=== PATIENT | female | born 1950 | race Caucasian/White ===

== ENCOUNTER 2017-11-15 13:00 | Emergency (ER) | payer BC, MEDICARE, OTHER ==
[~2017-11-15] VITALS: Ht 157.5 cm; Wt 63.5 kg
[~2017-11-15 13:00] MED LIST: AZITHROMYCIN250 MG PO; PEPCID20 MG PO; PREDNISONE20 MG PO; TAMIFLU75 MG PO; ULTRAM50 MG PO; Z.0.LISINOPRIL20 MG PO; Z.0.PREMARIN0.9 MG PO; Z.0.TENORMIN25 MG PO; Z.0.TYLENOL # 31 EA PO; [UNRECOGNIZED DRUG - CODE] PO
--- OUTSIDE RECORDS SUMMARY | 2017-11-15 13:04 | XMS REPORT ---
Author Author [facility] Address Unknown Phone Unavailable Care Team Providers Care Candy Feeder Name Role Phone RAHAT BOWEN Unavailable Unavailable Problems This patient has no known problems. Allergies, Adverse Reactions, Alerts This patient has no known allergies or adverse reactions. Medications This patient has no known medications. Results Test Description Test Time Test Comments Text Results Atomic Results Result Comments CHEST 2 VIEWS [place] [address] Patient Name: KANWAL PENA MR # : [id number] : 1950 Age/Sex: 66/F Req #: [id number] Adm Physician: Ordered by: RAHAT BOWEN MD Report #: [id number] Location: ER Room/Bed: Procedure: [id number] DX/ CHEST 2 VIEWS Exam Date: 05/10/17 Exam Time: 919 REPORT STATUS: Signed PROCEDURE: X-RAY CHEST, TWO VIEWS COMPARISON: . INDICATIONS: CHEST DISCOMFORT FINDINGS: The lungs are well-inflated. Unchanged 1 cm nodular opacity projecting over the lateral aspect of the right lower lung. No consolidation, pleural effusion, or pneumothorax. Tortuosity and atherosclerotic calcification of the thoracic aorta, unchanged. Otherwise normal mediastinal contour without pulmonary edema. No acute osseous abnormality. Stable mild anterior wedge deformity of a midthoracic vertebral body. CONCLUSION: No acute cardiopulmonary abnormality. 1 cm nodular opacity projecting over the right lower lung likely represents a nipple shadow. In the absence of a left- sided correlate, a repeat examination with nipple markers is recommended. Dictated by: Luis Bynum M.D. on 05/10/2017 at 9:52 Electronically approved by: Luis Bynum M.D. on 05/10/2017 at 9:52 Dictated By : LUIS BYNUM MD 1 Transcribed By: ISH on 05/10/17951 COPY TO: RAHAT BOWEN MD
[2017-11-15] MEDS ORDERED: TETRACAINE HCL 0.5% OPTH SOLN 4 ML BTL OP ONE (14:15)
[2017-11-15] MEDS ORDERED: FLUORESCEIN SOD(OPTH) 1 MG STRP OP ONE ×2 (14:15→15:15)
[2017-11-15 15:29] VITALS: BP 156/70
== END 2017-11-15 15:41 | disposition home or self-care (01) ==
LOC: ER 13:15
DX: H57.11 Ocular pain, right eye (principal); S05.01XA Injury of conjunctiva and corneal abrasion without foreign body, right eye, initial encounter; H11.31 Conjunctival hemorrhage, right eye; Y99.0 Civilian activity done for income or pay
CPT/HCPCS: 99283

== ENCOUNTER 2017-12-19 14:38 | Emergency (ER) | payer MEDICARE, BC ==
[~2017-12-19] VITALS: Ht 157.5 cm; Wt 63.5 kg
--- OUTSIDE RECORDS SUMMARY | 2017-12-19 14:40 | XMS REPORT | Continuity of Care Document ---
Author Author [facility] Organization [facility] Address [address] [place] [address] Phone Unavailable Care Team Providers Care Finance Clerk Name Role Phone DENNIS LEE MD PCP Insurance Providers Guarantor Kanwal Pena Address [address] [place] [address] Email [email or web address] Payer Medicare A & B Policy Number [id number] Subscriber's Name Kanwal Pena Relationship 18 Self / Same As Patient Effective Date 12/01/15 [facility] Policy Number [id number] Subscriber's Name Kanwal Pena Relationship 18 Self / Same As Patient Group Number [id number] Effective Date 12/01/15 Advance Directives Directive Response Recorded Date/Time Does the patient have an advance directive? No 07/20/11 7:57pm If yes, is advance directive on file with [facility]? No 07/20/11 7:58pm If not on file with [facility] will patient provide a copy? No 07/20/11 7:58pm Do you have a Directive to Physician? No 11/15/17 2:44pm Do you have a Medical Power of Welding Production Supervisor? No 11/15/17 2:44pm Do you have an out of hospital Do Not Resuscitate Order? No 11/15/17 2:44pm Do you have any special needs we should be aware of? No 11/15/17 2:44pm Do you have a support person here with you today? Yes 11/15/17 2:44pm Did patient receive Notice of Privacy Practices? Yes 11/15/17 2:44pm Did patient receive patient rights and responsibilities? Yes 11/15/17 2:44pm Problems Medical Problem Onset Date Status Bronchitis Unknown Acute Foreign body of left hand Unknown Acute Laceration of left hand Unknown Acute Medications Current Home Medications Medication Dose Units Route Directions Days Qty Instructions Start Date Azithromycin (Z-Kenneth) 250 Mg Tablet 250 Mg Oral Use As Directed 1 Udpkt Z-Pack Famotidine (Pepcid) 20 Mg Tablet 20 Mg Oral Daily 60 Tab Lisinopril 20 Mg Tablet 20 Mg Oral Twice A Day Tramadol Hcl (Ultram) 50 Mg Tablet 50 Mg Oral Every 8 Hours for Pain Past Home Medications Medication Directions Ordered Status Acetaminophen/Codeine (Tylenol # 3) 1 Ea Tab, 1 Oral Rt Q6h Discontinued Atenolol (Tenormin) 25 Mg Tablet, 0.5 Tab Oral Discontinued Azithromycin (Z-Kenneth) 250 Mg Tablet, 250 Mg Oral Use As Directed Discontinued Estrogens,Conjugated (Premarin) 0.9 Mg Tablet, 1 Oral Rt Daily Discontinued Oseltamivir Phosphate (Tamiflu) 75 Mg Cap, 75 Mg Oral Twice A Day Discontinued Penicillin V Potassium (Pencillin V Potassium) 250 Mg Tab, 1 Oral Rt Q6h Discontinued Prednisone 20 Mg Tab, 20 Mg Oral Daily Discontinued Social History Smoking Status Start Date Stop Date Never Smoker Hospital Discharge Instructions No hospital discharge instruction information available. Plan of Care Discharge Date 11/15/17 3:41pm Disposition HOME, SELF-CARE Condition at Discharge Stable Instructions/Education Provided Corneal Abrasion Eye Pain Forms Provided Work/School Excuse Prescriptions See Medication Section Additional Instructions/Education Follow up with eye doctor- call for appointment today [facility] OfficeAddress [address] [facility] [address] OfficeTelephone Take antibiotics as directed return for any concerns Functional Status No functional status information available. Allergies, Adverse Reactions, Alerts Allergen Type Severity Reaction Status Last Updated promethazine HCl Adverse Reaction Severe TARDIVE DISKINESIA Active meperidine HCl Adverse Reaction Intermediate NAUSEA & VOMITING Active 04/18 Codeine Adverse Reaction Intermediate NAUSEA & VOMITING Active 05/10/17 Immunizations No immunization information available. Vital Signs Acute Vital Signs Vital Response Date/Time Temperature (Fahrenheit) 98.7 degrees F (97.6 - 99.5) 11/15/2017 3:29pm Pulse Pulse Rate (adult) 62 bpm (60 - 90) 11/15/2017 3:29pm Respiratory Rate 18 bpm (12 - 24) 11/15/2017 3:29pm Blood Pressure 156/70 mm Hg 11/15/2017 3:29pm Height 5 ft 2 in 11/15/2017 1:02pm Weight 140 lb 11/15/2017 1:02pm Body Mass Index 25.6 kg/m^2 11/15/2017 1:02pm Results Laboratory Results Test Name Result Units Flags Reference Collection Date/Time Result Date/ Time Comments Prothrombin Time 11.7 seconds L 11.9-14.5 02/02/2017 9:45pm 02/02/2017 11:01pm Prothromb Time International Ratio 0.82 02/02/2017 9:45pm 2016 11:01pm Oral Anticoagulant Therapy INR Values: 1. Low Intensity Therapy 1.5 - 2.0 2. Moderate Intensity Therapy 2.0 - 3.0 3. High Intensity Therapy(1) 2.5 - 3.5 4. High Intensity Therapy(2) 3.0 - 4.0 5. Panic Value INR > 5.0 Activated Partial Thromboplast Time 28.8 seconds 23.8-35.5 02/02/2017 9: 45pm 02/02/2017 11:01pm Magnesium Level 2.4 MG/DL H 1.3-2.1 02/02/2017 9:45pm 02/02/2017 11: 06pm White Blood Count 6.55 x10e3/uL 4.8-10.8 05/10/2017 9:07am 05/10/2017 10:06am Red Blood Count 3.54 x10e6/uL L 3.6-5.1 05/10/2017 9:07am 05/10/2017 10: 06am Hemoglobin 10.8 g/dL L 12.0-16.0 05/10/2017 9:07am 05/10/2017 10:06am Hematocrit 32.7 % L 34.2-44.1 05/10/2017 9:07am 05/10/2017 10:06am Mean Corpuscular Volume 92.4 fL 81-99 05/10/2017 9:07am 05/10/2017 10: 06am Mean Corpuscular Hemoglobin 30.5 pg 28-32 05/10/2017 9:07am 05/10/2017 10:06am Mean Corpuscular Hemoglobin Concent 33.0 g/dL 31-35 05/10/2017 9:07am 05/10/2017 10:06am Red Cell Distribution Width 14.7 % H 11.7-14.4 05/10/2017 9:07am 2016 10:06am Platelet Count 337 x10e3/uL 140-360 05/10/2017 9:07am 05/10/2017 10: 06am Neutrophils (%) (Auto) 59.1 % 38.7-80.0 05/10/2017 9:07am 05/10/2017 10 :06am Lymphocytes (%) (Auto) 21.5 % 18.0-39.1 05/10/2017 9:07am 05/10/2017 10 :06am Monocytes (%) (Auto) 9.0 % 4.4-11.3 05/10/2017 9:07am 05/10/2017 10: 06am Eosinophils (%) (Auto) 9.8 % H 0.0-6.0 05/10/2017 9:07am 05/10/2017 10: 06am Basophils (%) (Auto) 0.3 % 0.0-1.0 05/10/2017 9:07am 05/10/2017 10: 06am IM GRANULOCYTES % 0.3 % 0.0-1.0 05/10/2017 9:07am 05/10/2017 10:06am Neutrophils # (Auto) 3.9 2.1-6.9 05/10/2017 9:07am 05/10/2017 10: 06am Lymphocytes # (Auto) 1.4 1.0-3.2 05/10/2017 9:07am 05/10/2017 10: 06am Monocytes # (Auto) 0.6 0.2-0.8 05/10/2017 9:07am 05/10/2017 10:06am Eosinophils # (Auto) 0.6 H 0.0-0.4 05/10/2017 9:07am 05/10/2017 10: 06am Basophils # (Auto) 0.0 0.0-0.1 05/10/2017 9:0705/10/2017 10:06am Absolute Immature Granulocyte (auto 0.02 x10e3/uL 0-0.1 05/10/2017 9: 07am 05/10/2017 10:06am Urine Color YELLOW YELLOW 05/10/2017 9:1305/10/2017 10:17am Urine Clarity CLEAR CLEAR 05/10/2017 9:1305/10/2017 10:17am Urine Specific [place] 1.010 1.010-1.025 05/10/2017 9:132016 10:17am Urine pH 6.5 5 - 7 05/10/2017 9:1305/10/2017 10:17am Urine Leukocyte Esterase NEGATIVE NEGATIVE 05/10/2017 9:13am 2016 10:17am Urine Nitrite NEGATIVE NEGATIVE 05/10/2017 9:1305/10/2017 10:17am Urine Protein NEGATIVE NEGATIVE 05/10/2017 9:13am 05/10/2017 10:17am Urine Glucose (UA) NEGATIVE NEGATIVE 05/10/2017 9:1305/10/2017 10: 17am Urine Ketones NEGATIVE NEGATIVE 05/10/2017 9:1305/10/2017 10:17am Urine Urobilinogen 0.2 mg/dL 0.2 - 1 05/10/2017 9:1305/10/2017 10: 17am Urine Bilirubin NEGATIVE NEGATIVE 05/10/2017 9:1305/10/2017 10: 17am Urine Blood NEGATIVE NEGATIVE 05/10/2017 9:1305/10/2017 10:17am Urine WBC 0-5 /HPF 0-5 05/10/2017 9:1305/10/2017 10:31am Urine RBC NONE /HPF 0-5 05/10/2017 9:1305/10/2017 10:31am Urine Bacteria NONE /HPF NONE 05/10/2017 9:13am 05/10/2017 10:31am Urine Epithelial Cells FEW /LPF NONE 05/10/2017 9:1305/10/2017 10: 31am Sodium Level 140 mmol/L 136-145 05/10/2017 9:0705/10/2017 9:49am Potassium Level 4.4 mmol/L 3.5-5.1 05/10/2017 9:0705/10/2017 9:49am Chloride Level 105 mmol/L 98-107 05/10/2017 9:07am 05/10/2017 9:49am Carbon Dioxide Level 24 mmol/L 22-29 05/10/2017 9:0705/10/2017 9: 49am Anion Gap 15.4 mmol/L 8-16 05/10/2017 9:0705/10/2017 9:49am Blood Urea Nitrogen 29 mg/dL H 7-26 05/10/2017 9:0705/10/2017 9:49am Creatinine 1.47 mg/dL H 0.57-1.11 05/10/2017 9:0705/10/2017 9:49am BUN/Creatinine Ratio 20 6-25 05/10/2017 9:0705/10/2017 9:49am Estimat Glomerular Filtration Rate 36 ML/MIN L 60- 05/10/2017 9:0704/2017 9:49am Ranges were taken from the National Kidney Disease Education Program and the National Kid[employer] Foundation literature. Reference ranges: 60 or greater: Normal 16-59 (for 3 consecutive months): Chronic kidney disease 15 or less: Kidney failure Glucose Level 105 mg/dL 74-118 05/10/2017 9:0705/10/2017 9:49am Calcium Level 9.8 mg/dL 8.4-10.2 05/10/2017 9:0705/10/2017 9:49am Total Bilirubin 0.3 mg/dL 0.2-1.2 05/10/2017 9:0705/10/2017 9:49am Aspartate Amino Transf (AST/SGOT) 19 IU/L 5-34 05/10/2017 9:072016 9:49am Alanine Aminotransferase (ALT/SGPT) 18 IU/L 0-55 05/10/2017 9:0704/2017 9:49am Total Protein 8.1 g/dL 6.5-8.1 05/10/2017 9:0705/10/2017 9:49am Albumin 4.1 g/dL 3.5-5.0 05/10/2017 9:07am 05/10/2017 9:49am Globulin 4.0 g/dL H 2.3-3.5 05/10/2017 9:07am 05/10/2017 9:49am Albumin/Globulin Ratio 1.0 0.8-2.0 05/10/2017 9:07am 05/10/2017 9: 49am Alkaline Phosphatase 102 IU/L 40-150 05/10/2017 9:07am 05/10/2017 9: 49am Creatine Kinase 80 IU/L 29-168 05/10/2017 9:07am 05/10/2017 9:49am Creatine Kinase MB 1.10 ng/mL 0.00-5.00 05/10/2017 9:07am 05/10/2017 10 :00am Troponin I 0.002 ng/mL 0-0.300 05/10/2017 9:07am 05/10/2017 10:00am Procedures Procedure Status Date Provider(s) INTMD RPR S/A/T/EXT 2.5 CM/< Completed 05/03/17 X-ray of chest, two views Active 05/10/17 RAHAT BOWEN MD Encounters Encounter Location Arrival/Admit Date Discharge/Depart Date Attending Provider Departed Emergency Room [facility] 11/15/17 1:15pm 3:41pm GILA BAUMAN MD Departed Emergency Room [facility] 05/10/17 8:46am 11:12am RAHAT BOWEN MD Departed Emergency Room [facility] 05/03/17 4:20pm 5:26pm RAHAT BOWEN MD Departed Emergency Room [facility] 02/02/17 7:51pm 11:50pm SHAQUILLE CARRANZA MD
[2017-12-19 16:19] LABS: INR 0.95; PROTHROMBIN TIME 11.9 seconds (11.9-14.5)
[2017-12-19 16:20] LABS: PARTIAL THROMBOPLASTIN TIME 28.5 seconds (23.8-35.5)
== END 2017-12-19 18:19 | disposition home or self-care (01) ==
LOC: ER 14:38
DX: M54.5 Low back pain (principal); S39.012A Strain of muscle, fascia and tendon of lower back, initial encounter; M79.662 Pain in left lower leg; R26.2 Difficulty in walking, not elsewhere classified; R25.2 Cramp and spasm; M79.89 Other specified soft tissue disorders
CPT/HCPCS: 36415; 85379; 85610; 85730; 93971; 99284

== ENCOUNTER 2018-10-10 14:04 | Emergency (ER) | payer MEDICARE, BC ==
[~2018-10-10] VITALS: Ht 157.5 cm; Wt 63.5 kg
--- NOTE | 2018-10-10 18:43 | Diagnostic Imaging Report ---
Exam: Left foot series. Clinical History: Status post fall Comparison: None. Findings: 3 views of the left foot. There is normal bone mineralization. Negative for acute, displaced fracture or dislocation. Minimal degenerative changes in the first metatarsophalangeal joint. No soft tissue swelling. Moderate to large anterior calcaneal enthesophyte. Impression: 1. No acute abnormalities. Signed by: Dr. Brandon Wells M.D. on 10/10/2018 6:40 PM
--- NOTE | 2018-10-10 18:44 | Diagnostic Imaging Report ---
Exam: Left Ankle Series. History: Status post fall Comparison: None. DISCUSSION: 3 views of the left ankle. There is normal bone mineralization. No evidence of acute, displaced fracture or dislocation. Ankle mortise is preserved.No osteochondral lesion. No abnormal soft tissue calcification or mass. Moderate to large anterior and small posterior calcaneal enthesophytes. No significant soft tissue swelling. IMPRESSION: 1. No acute abnormalities. The staff physician below has personally reviewed this exam on the date of dictation. Signed by: Dr. Brandon Wells M.D. on 10/10/2018 6:41 PM
--- NOTE | 2018-10-10 18:48 | Diagnostic Imaging Report ---
Exam: Left lower extremity, 4 views History: Status post fall Comparison: None. Findings: There is normal bone mineralization. No acute, displaced fracture or dislocation. Joint spaces preserved. No abnormal soft tissue calcification or soft tissue defect. No significant soft tissue swelling. Impression: 1. No acute abnormal allergies. Signed by: Dr. Brandon Wells M.D. on 10/10/2018 6:45 PM
--- NOTE | 2018-10-10 20:00 | NUR ---
PT NOT IN WR
== END 2018-10-10 20:00 | disposition home or self-care (01) ==
LOC: ER 14:04
DX: G89.11 Acute pain due to trauma (principal); S93.401A Sprain of unspecified ligament of right ankle, initial encounter; S93.601A Unspecified sprain of right foot, initial encounter; X50.1XXA Overexertion from prolonged static or awkward postures, initial encounter; Y92.008 Other place in unspecified non-institutional (private) residence as the place of occurrence of the external cause; E78.5 Hyperlipidemia, unspecified; Z87.11 Personal history of peptic ulcer disease

== ENCOUNTER 2024-02-29 20:44 | Emergency (ER) | payer MEDICARE, BC ==
[~2024-02-29] VITALS: Ht 157.5 cm; Wt 62.1 kg
[~2024-02-29 20:44] MED LIST changes: +DOXYCYCLINE HY100 MG PO; +LISINOPRIL10 MG PO; +VENTOLIN HFA18 GM INH
[2024-02-29 21:05] VITALS: PULSE 88; RESP 16; TEMP 98.4
[2024-02-29 23:34] VITALS: BP 157/65; PULSE 71; RESP 16; TEMP 98.3; O2SAT 100
== END 2024-02-29 23:35 | disposition home or self-care (01) ==
LOC: ER 20:48
DX: M25.522 Pain in left elbow (principal); I12.9 Hypertensive chronic kidney disease with stage 1 through stage 4 chronic kidney disease, or unspecified chronic kidney disease; N18.9 Chronic kidney disease, unspecified; J45.909 Unspecified asthma, uncomplicated; M32.9 Systemic lupus erythematosus, unspecified; M19.91 Primary osteoarthritis, unspecified site; M06.9 Rheumatoid arthritis, unspecified; Z79.899 Other long term (current) drug therapy; Z79.52 Long term (current) use of systemic steroids
CPT/HCPCS: 99283